=== PATIENT | male | born 1980 | race Caucasian/White ===

== ENCOUNTER 2024-10-03 08:15 | Emergency (ER) | payer BC ==
--- NOTE | 2024-10-03 09:47 | RAD REPORT ---
EXAM:Extremity Venous Uni Ltd HISTORY: Right leg pain TECHNIQUE: Sonographic evaluation right lower extremity performed.Grayscale, color and spectral daniel sis performed on all vessels COMPARISON: None. FINDINGS: Right common femoral, superficial femoral, greater saphenous, popliteal and posterior tibial veins ar e compressible and demonstrate augmentation. Doppler demonstrates good flow. IMPRESSION: No evidence of deep venous thrombosis involving the right lower extremity.
--- NOTE | 2024-10-03 09:49 | RAD REPORT ---
EXAM:Extremity Nonvascular Limited CLINICAL HISTORY: Right leg pain TECHNIQUE: Sonographic evaluation of right lower extremity performed. FINDINGS: Patient has pain within the lateral right leg superior to the knee. Ultrasound demonstrates a 2.1 x 0.6 x 1.4 cm hypoechoic structure with an echogenic center. Significa nt increased vascularity is not noted. IMPRESSION: 2.1 cm hypoechoic structure within the right leg at the area of pain may represent an inflammatory ly mph node. It probably is benign. It is recommended that the patient have a follow-up ultrasound in one month. If the symptoms worsen then ultrasound should be performed sooner.
--- NOTE | 2024-10-03 09:57 | EDPHYS ---
Physician Documentation [facility] Name: Gab Cuenca Age: 44 yrs Sex: Male : 1980 Arrival Date: 10/03/2024 Time: 08:15 Bed 18 Private MD: ED Physician Freddy Gomez HPI: 10/03 08:29 This 44 yrs old Male presents to ER via Wheelchair with complaints of Leg Swelling - sb4 right. 08:29 Patient states that he self injected his testosterone 4 days ago and slowly the sb4 injection site has become very red, swollen, warm. No reported fever. No medical problems, no allergies. Has been doing testosterone injections for about a year now without any issues. Historical: - Allergies: 08:28 No Known Allergies; ss - PMHx: 08:28 None; ss - PSHx: 08:28 None; ss - Immunization history:: Adult Immunizations up to date. - Infectious Disease History:: Denies. - Social history:: Smoking status: Patient denies any tobacco usage or history of. ROS: 08:29 Constitutional: Negative for fever, chills, and weight loss, sb4 08:29 Skin: Positive for erythema, swelling, of the lateral aspect of right thigh, 08:29 All other systems are negative, Exam: 08:30 Constitutional: This is a well developed, well nourished patient who is awake, alert, sb4 and in no acute distress. Head/Face: Normocephalic, atraumatic. Eyes: Extra-ocular motions intact. Periorbital areas with no swelling, redness, or edema. ENT: Mucous membranes moist. Respiratory: No increased work of breathing, no retractions or nasal flaring. 08:39 Skin: cellulitis, that is mild, irregular, on the right quadriceps, sb4 Vital Signs: 08:26 Pulse 78; Resp 16; Pulse Ox 100% on R/A; Weight 99.79 kg; Height 6 ft. 0 in. ; Pain ss 4/10; 08:29 BP 150 / 81; ss 08:26 Body Mass Index 29.84 (99.79 kg, 182.88 cm) ss 08:26 Pain Scale: Adult ss MDM: 08:23 Medical Screening Exam initiated sb4 08:40 Differential diagnosis: abscess, allergic reaction, cellulitis, hematoma, DVT. sb4 09:56 Data reviewed: vital signs, nurses notes, radiologic studies, I have discussed the sb4 patient's presentation/case with the attending Emergency Department Physician; and as a result, I will discharge patient. Counseling: I had a detailed discussion with the patient and/or guardian regarding the historical points, exam findings, and any diagnostic results supporting the discharge/admit diagnosis, radiology results, the need for outpatient follow up, for definitive care, to return to the emergency department if symptoms worsen or persist or if there are any questions or concerns that arise at home. 09:56 Counseling: I had a detailed discussion with the patient and/or guardian regarding the sb4 presence of at least one elevated blood pressure reading (>120/80) during this emergency department visit. 10/03 08:38 Order name: Extremity Venous Uni Ltd US; Complete Time: 09:49 sb4 10/03 08:38 Order name: US Extrmty Nonvasular Limited; Complete Time: 09:52 sb4 10/03 08:30 Order name: Gown patient; Complete Time: 08:35 sb4 Administered Medications: No medications were administered Disposition: 10:26 Co-signature as Attending Physician, Freddy Gomez MD I reviewed the patient's care rn provided by the Advanced Practice Provider and agree with the diagnosis and treatment plan. Disposition Summary: 10/03/24 09:56 Discharge Ordered Notes: Location: Home sb4 Problem: new sb4 Symptoms: are unchanged sb4 Condition: Stable sb4 Diagnosis - Cellulitis of right lower limb sb4 Followup: sb4 - With: Emergency Department - When: - Reason: Fever > 102 F, Worsening of condition Discharge Instructions: - Discharge Summary Sheet sb4 - Cellulitis, Adult sb4 Forms: - Work release form sb4 - Antibiotic Education sb4 - Patient Portal Instructions sb4 - Leadership Thank You Letter sb4 Prescriptions: - Bactrim DS 800-160 mg Oral Tablet - take 1 tablet ORAL route every 12 hours for 10 days; 20 tablet; Refills: 0, sb4 Product Selection Permitted Signatures: Dispatcher [employer] Freddy Celaya MD MD rn Blanchard, Shelby, RN RN ss Peltier, Brian, RN RN bp Brown, Sophia, PA-C PAJovani sb4 Corrections: (The following items were deleted from the chart) 08:38 08:38 Extrmty Nonvasular Limited+[email or web address] ordered. EDMS EDMS
--- NOTE | 2024-10-03 09:57 | ER ---
Nurse's Notes [facility] Name: Gab Cuenca Age: 44 yrs Sex: Male : 1980 Arrival Date: 10/03/2024 Time: 08:15 Bed 18 Private MD: Diagnosis: Cellulitis of right lower limb Presentation: 10/03 08:26 Chief complaint: Patient states: Self injected testosterone on to R upper leg. ss Pt reports he was fine all day , but is now experiencing redness and swelling to the site. Coronavirus screen: Client denies travel out of the [place] in the last 14 days. Ebola Screen: Patient denies exposure to infectious person. Patient denies travel to an Ebola-affected area in the 21 days before illness onset. Initial Sepsis Screen: Does the patient meet any 2 criteria? No. Patient's initial sepsis screen is negative. Does the patient have a suspected source of infection? No. Patient's initial sepsis screen is negative. Risk Assessment: Do you want to hurt yourself or someone else? Patient reports no desire to harm self or others. Onset of symptoms was September 29, 2024. 08:26 Method Of Arrival: Wheelchair ss 08:26 Acuity: GENO 3 Triage Assessment: 08:30 General: Appears in no apparent distress. comfortable, Behavior is cooperative, bp appropriate for age, anxious. Pain: Complains of pain in right quadriceps. EENT: No deficits noted. Neuro: No deficits noted. Cardiovascular: No deficits noted. Respiratory: No deficits noted. GI: No signs and/or symptoms were reported involving the gastrointestinal system. : No signs and/or symptoms were reported regarding the genitourinary system. Derm: R LATERAL QUAD ERYTHEMA. Musculoskeletal: No deficits noted. Historical: - Allergies: 08:28 No Known Allergies; ss - PMHx: 08:28 None; ss - PSHx: 08:28 None; ss - Immunization history:: Adult Immunizations up to date. - Infectious Disease History:: Denies. - Social history:: Smoking status: Patient denies any tobacco usage or history of. Screenin:30 [facility] ED Fall Risk Assessment (Adult) History of falling in the last 3 months, bp including since admission No falls in past 3 months (0 pts) Confusion or Disorientation No (0 pts) Intoxicated or Sedated No (0 pts) Impaired Gait No (0 pts) Mobility Assist Device Used No (0 pt) Altered Elimination No (0 pt) Score/Fall Risk Level 0 - 2 = Low Risk Oriented to surroundings. Abuse screen: Denies threats or abuse. Denies injuries from another. Nutritional screening: No deficits noted. Tuberculosis screening: No symptoms or risk factors identified. Assessment: 08:30 General: Appears in no apparent distress. comfortable, Behavior is cooperative, bp appropriate for age, anxious. Vital Signs: 08:26 Pulse 78; Resp 16; Pulse Ox 100% on R/A; Weight 99.79 kg; Height 6 ft. 0 in. ; Pain ss 4/10; 08:29 BP 150 / 81; ss 08:26 Body Mass Index 29.84 (99.79 kg, 182.88 cm) ss 08:26 Pain Scale: Adult ss ED Course: 08:17 Patient arrived in ED. im 08:21 Janel Perez PA-C is PHCP. sb4 08:21 Freddy Gomez MD is Attending Physician. sb4 08:28 Triage completed. ss 08:28 Arm band placed on right wrist. ss 08:29 Baldemar Lewis, RN is Primary Nurse. bp 08:30 Patient has correct armband on for positive identification. bp 09:09 Extremity Venous Uni Ltd US In Process Unspecified. EDMS 09:09 US Extrmty Nonvasular Limited In Process Unspecified. EDMS 10:16 No provider procedures requiring assistance completed. Patient did not have IV access ld1 during this emergency room visit. Administered Medications: No medications were administered Medication: 08:30 VIS not applicable for this client. bp Outcome: 09:56 Discharge ordered by . sb4 10:16 Discharged to home ambulatory, ld1 10:16 Condition: stable 10:16 Discharge instructions given to patient, Instructed on discharge instructions, follow up and referral plans. medication usage, Demonstrated understanding of instructions, follow-up care, medications, Prescriptions given X 1, 10:16 Patient left the ED. ld1 Signatures: Dispatcher [employer] EDMS Payal Santoro RN RN ss Baldemar Lewis, RN YURIDIA bp Harriet Mc RN RN ld1 Janel Perez PA-C PA-C sb4 Ester Shaikh im
[2024-10-03 10:26] VITALS: O2SAT 100
[2024-10-03 10:27] VITALS: BP 150/81
== END 2024-10-03 10:16 | disposition home or self-care (01) ==
LOC: ER 08:15
DX: L03.115 Cellulitis of right lower limb (principal)
CPT/HCPCS: 76882; 93971; 99283